=== PATIENT | male | born 1970 | race Caucasian/White ===

== ENCOUNTER 2017-10-05 07:17 | Inpatient (IN) ==
[2017-10-05] MEDS ORDERED: SODIUM CHLORIDE 0.9% 1,000 ML IV STA (08:02)
[2017-10-05] MEDS ORDERED: MORPHINE 4 MG/1 ML VIAL IV STA (08:02)
[2017-10-05] MEDS ORDERED: ONDANSETRON 4 MG/2 ML VIAL IV STA (08:02)
[2017-10-05 08:35] LABS: Basophils # 0.2 10*3/uL (0.0-0.2); Basophils % 1.4 % (0.0-0.8); Eosinophils # 0.3 10*3/uL (0.0-0.87); Hemoglobin 17.6 GM/DL (14.0-18.0); Immature Granulocytes % 0.6 %; Immature Granulocytes Absolute 0.08 #; Lymphocytes # 3.5 10*3/uL (1.4-4.0); Lymphocytes % 24.9 % (21.2-54.2); Mean Corpuscular HGB Conc 27.4 GM/DL (32-36); Mean Corpuscular Hemoglobin 17 PG (27-34); Mean Corpuscular Volume 61.1 FL (87-102); Monocytes # 1.7 10*3/uL (0.11-0.8); Monocytes % 12.3 % (1.7-12.7); NRBC # 0.21 10*3/uL; Neutrophils # 8.2 10*3/uL (1.4-7.4); Neutrophils % 58.8 % (38.7-73.9); Platelet Count 365 T/CUMM (130-400); Red Blood Count > 8.60 MC/CUMM (3.8-5.5); White Blood Count 13.9 T/CUMM (4-12)
[2017-10-05 09:07] LABS: Alanine Aminotransferase 26 U/L (16-61); Albumin 3.5 G/DL (3.4-5.0); Alkaline Phosphatase 114 U/L (45-117); Aspartate Amino Transferase 27 U/L (0-37); Blood Urea Nitrogen 16 MG/DL (7-18); Calcium 9.7 MG/DL (8.5-10.1); Glucose 91 MG/DL (74-106); Potassium 3.7 MMOL/L (3.5-5.1); Sodium 136 MMOL/L (136-145); Total Protein 9.3 G/DL (6.4-8.3)
[2017-10-05 09:09] LABS: Lactic Acid 2.1 MMOL/L (0.4-2.0)
[2017-10-05 09:28] LABS: Hematocrit 64.2 VOL% (42.0-52.0)
[2017-10-05 09:40] LABS: Hypochromasia 1+
[2017-10-05 09:41] LABS: Anisocytosis 1+
[2017-10-05 09:42] LABS: Macrocytosis 1+; Platelet Estimate Normal
[2017-10-05] MEDS ORDERED: SODIUM CHLORIDE 0.45% 1,000 ML IV ONE (09:59)
[2017-10-05] MEDS ORDERED: HYDROmorphone 2 MG/1 ML VIAL IV STA (10:22)
[2017-10-05] MEDS ORDERED: HYDROmorphone 2 MG/1 ML VIAL ONE (10:23)
[2017-10-05 11:04] LABS: Apearance,Urine CLEAR (Clear); Bilirubin,Urine Negative (Negative); Blood, Urine Negative (Negative); Glucose,Urine (UA) Negative (Negative); Ketones,Urine Negative (Negative); Mucus,Urine Few /LPF (Occasional); Nitrite,Urine Negative (Negative); Protein,Urine Negative; RBC,Urine 4 /HPF (0-4); Sperm,Urine Few /HPF (Negative); Squamous Epithelial Cell,Urine Occasional /HPF (0-10); Urine Color Amber (Yellow); WBC,Urine 1 /HPF (0-6)
[2017-10-05] MEDS ORDERED: ACETAMINOPHEN 325 MG TABLET PO PRN (12:16)
[2017-10-05] MEDS ORDERED: MORPHINE 4 MG/1 ML VIAL IV PRN (13:45)
[2017-10-05] MEDS: SODIUM CHLORIDE 0.9% 1,000 ML IV SCH (14:01)
[2017-10-05] MEDS: MORPHINE 4 MG/1 ML VIAL IV PRN ×3 (16:46→21:56)
[2017-10-05 17:48] LABS: INR 1.3; PT Patient Result 13.2 SECS
[2017-10-05] MEDS: methylPREDNISolone SOD SUC 40 MG/1 ML VIAL IV SCH (17:58)
[2017-10-05 18:01] LABS: Basophils # 0.2 10*3/uL (0.0-0.2); Basophils % 1.1 % (0.0-0.8); Eosinophils # 0.4 10*3/uL (0.0-0.87); Eosinophils % 2.6 % (0.00-10.9); Hematocrit 58.6 VOL% (42.0-52.0); Immature Granulocytes % 0.7 %; Lymphocytes # 3.5 10*3/uL (1.4-4.0); Lymphocytes % 24.3 % (21.2-54.2); Mean Corpuscular HGB Conc 27.5 GM/DL (32-36); Mean Corpuscular Hemoglobin 17 PG (27-34); Mean Corpuscular Volume 61.3 FL (87-102); Monocytes # 1.6 10*3/uL (0.11-0.8); Monocytes % 10.8 % (1.7-12.7); NRBC # 0.18 10*3/uL; Neutrophils # 8.8 10*3/uL (1.4-7.4); Neutrophils % 60.5 % (38.7-73.9); Platelet Count 328 T/CUMM (130-400); Red Blood Count > 8.60 MC/CUMM (3.8-5.5); Red Cell Distribution Width 28.4 % (9.3-17.3); White Blood Count 14.5 T/CUMM (4-12)
[2017-10-05 18:03] LABS: Hemoglobin 16.1 GM/DL (14.0-18.0)
[2017-10-05 18:13] LABS: Band Neutrophils 1 % (0-10); Eosinophils 2 % (0-10); Lymphocytes 17 % (20-55); Macrocytosis 2+; Nucleated Red Blood Cells 2 (0-5); Platelet Estimate Normal; Total Cells Counted 100
[2017-10-05 18:14] LABS: Polychromasia Few
[2017-10-05 18:15] LABS: Segmented Neutrophils 72 % (50-85)
[2017-10-05 18:58] LABS: HIV Antigen/Antibody Result Nonreactive (Nonreactive)
[2017-10-05 18:59] LABS: Hepatitis B Core IgM Quant < 0.05 Index; Hepatitis B Core IgM Result Negative (Negative); Hepatitis B Surface Ag Quant 0.23 Index; Hepatitis B Surface Ag Result Negative (Negative); Hepatitis C Virus Ab Quant > 11.00 Index; Hepatitis C Virus Ab Result Positive (Negative)
[2017-10-05] MEDS: ONDANSETRON 4 MG/2 ML VIAL IV PRN (19:46)
[2017-10-06] MEDS: MORPHINE 4 MG/1 ML VIAL IV PRN ×4 (01:15→09:02)
[2017-10-06] MEDS: SODIUM CHLORIDE 0.9% 1,000 ML IV SCH ×2 (02:00→16:20)
[2017-10-06] MEDS: ONDANSETRON 4 MG/2 ML VIAL IV PRN (04:13)
[2017-10-06] MEDS: methylPREDNISolone SOD SUC 40 MG/1 ML VIAL IV SCH ×2 (05:15→17:28)
[2017-10-06 05:34] LABS: Basophils # 0.1 10*3/uL (0.0-0.2); Basophils % 0.5 % (0.0-0.8); Hematocrit 59.3 VOL% (42.0-52.0); Hemoglobin 16.3 GM/DL (14.0-18.0); Immature Granulocytes % 0.7 %; Immature Granulocytes Absolute 0.08 #; Lymphocytes # 1.8 10*3/uL (1.4-4.0); Lymphocytes % 16.1 % (21.2-54.2); Mean Corpuscular HGB Conc 27.5 GM/DL (32-36); Mean Corpuscular Hemoglobin 17 PG (27-34); Mean Corpuscular Volume 60.8 FL (87-102); Monocytes % 8.9 % (1.7-12.7); NRBC # 0.15 10*3/uL; Neutrophils # 8.3 10*3/uL (1.4-7.4); Neutrophils % 73.8 % (38.7-73.9); Platelet Count 353 T/CUMM (130-400); Red Cell Distribution Width 28.3 % (9.3-17.3); White Blood Count 11.2 T/CUMM (4-12)
[2017-10-06 05:40] LABS: Albumin 3.1 G/DL (3.4-5.0); Bilirubin,Direct 0.34 MG/DL (0.0-0.20); Bilirubin,Indirect 1.3 MG/DL (0.0-1.0); Bilirubin,Total 1.6 MG/DL (0.2-1.0); Calcium 9.3 MG/DL (8.5-10.1); Potassium 3.8 MMOL/L (3.5-5.1); Total Protein 8.5 G/DL (6.4-8.3)
[2017-10-06 06:12] LABS: Red Blood Count 9.28 MC/CUMM (3.8-5.5)
[2017-10-06 06:31] LABS: Band Neutrophils 3 % (0-10); Lymphocytes 17 % (20-55); Nucleated Red Blood Cells 2 (0-5); Segmented Neutrophils 75 % (50-85); Total Cells Counted 100
[2017-10-06 06:35] LABS: Anisocytosis 1+; Hypochromasia 1+; Macrocytosis 1+; Platelet Estimate Adequate; Target Cells Few
[2017-10-06] MEDS: PANTOPRAZOLE 40 MG TABLET PO SCH (09:04)
[2017-10-06] MEDS ORDERED: KETOROLAC 30 MG/1 ML VIAL IV ONE (09:18)
[2017-10-06] MEDS ORDERED: NALOXONE 0.4 MG/ML VIAL IV PRN (09:20)
[2017-10-06] MEDS: HYOSCYAMINE 0.125 MG TABLET PO SCH ×3 (10:46→21:34)
[2017-10-06] MEDS: HYDROmorphone PCA 30 MG/30 ML SYRINGE IV SCH (11:35)
[2017-10-06] MEDS: KETOROLAC 15 MG/1 ML VIAL IV SCH ×2 (15:07→21:34)
[2017-10-06] MEDS: HYDROXYUREA 500 MG CAPSULE PO SCH ×2 (17:26→21:34)
[2017-10-07] MEDS: KETOROLAC 15 MG/1 ML VIAL IV SCH ×4 (04:04→20:41)
[2017-10-07] MEDS: HYOSCYAMINE 0.125 MG TABLET PO SCH ×4 (04:05→20:41)
[2017-10-07] MEDS: SODIUM CHLORIDE 0.9% 1,000 ML IV SCH ×2 (04:09→20:41)
[2017-10-07] MEDS: methylPREDNISolone SOD SUC 40 MG/1 ML VIAL IV SCH ×2 (05:16→16:33)
[2017-10-07 05:59] LABS: Basophils % 0.2 % (0.0-0.8); Hematocrit 51.1 VOL% (42.0-52.0); Hemoglobin 14.1 GM/DL (14.0-18.0); Immature Granulocytes % 0.9 %; Immature Granulocytes Absolute 0.13 #; Lymphocytes # 2.3 10*3/uL (1.4-4.0); Lymphocytes % 15.6 % (21.2-54.2); Mean Corpuscular HGB Conc 27.6 GM/DL (32-36); Mean Corpuscular Hemoglobin 17 PG (27-34); Mean Corpuscular Volume 60.5 FL (87-102); Monocytes # 1.2 10*3/uL (0.11-0.8); Monocytes % 7.9 % (1.7-12.7); NRBC # 0.16 10*3/uL; Neutrophils # 11.1 10*3/uL (1.4-7.4); Neutrophils % 75.4 % (38.7-73.9); Platelet Count 389 T/CUMM (130-400); Red Blood Count 8.45 MC/CUMM (3.8-5.5); Red Cell Distribution Width 27.4 % (9.3-17.3); White Blood Count 14.7 T/CUMM (4-12)
[2017-10-07 06:31] LABS: Albumin 2.7 G/DL (3.4-5.0); Bilirubin,Total 1.5 MG/DL (0.2-1.0); Calcium 8.8 MG/DL (8.5-10.1); Potassium 3.9 MMOL/L (3.5-5.1); Total Protein 7.3 G/DL (6.4-8.3)
[2017-10-07 06:37] LABS: Lymphocytes 13 % (20-55); Nucleated Red Blood Cells 1 (0-5); Platelet Estimate Normal; Segmented Neutrophils 83 % (50-85); Total Cells Counted 100
[2017-10-07 06:49] LABS: Bilirubin,Direct 0.27 MG/DL (0.0-0.20); Bilirubin,Indirect 1.1 MG/DL (0.0-1.0); Bilirubin,Total 1.4 MG/DL (0.2-1.0); Calcium 8.8 MG/DL (8.5-10.1); Osmolality,Calculated 275.8 MOS/KG (273-304); Total Protein 7.1 G/DL (6.4-8.3)
[2017-10-07] MEDS: PANTOPRAZOLE 40 MG TABLET PO SCH (09:58)
[2017-10-07] MEDS: HYDROXYUREA 500 MG CAPSULE PO SCH ×2 (09:58→20:41)
[2017-10-08] MEDS: HYDROmorphone PCA 30 MG/30 ML SYRINGE IV SCH ×2 (04:17→09:36)
[2017-10-08] MEDS: KETOROLAC 15 MG/1 ML VIAL IV SCH ×4 (04:18→20:54)
[2017-10-08] MEDS: HYOSCYAMINE 0.125 MG TABLET PO SCH ×4 (04:18→20:53)
[2017-10-08] MEDS: methylPREDNISolone SOD SUC 40 MG/1 ML VIAL IV SCH ×2 (06:10→17:38)
[2017-10-08] MEDS: SODIUM CHLORIDE 0.9% 1,000 ML IV SCH ×3 (06:10→20:55)
[2017-10-08 06:25] LABS: Basophils % 0.2 % (0.0-0.8); Eosinophils % 0.1 % (0.00-10.9); Hematocrit 51.6 VOL% (42.0-52.0); Hemoglobin 13.9 GM/DL (14.0-18.0); Immature Granulocytes % 0.8 %; Immature Granulocytes Absolute 0.15 #; Lymphocytes # 3.3 10*3/uL (1.4-4.0); Lymphocytes % 17.7 % (21.2-54.2); Mean Corpuscular HGB Conc 26.9 GM/DL (32-36); Mean Corpuscular Hemoglobin 17 PG (27-34); Mean Corpuscular Volume 61.5 FL (87-102); Monocytes # 1.4 10*3/uL (0.11-0.8); Monocytes % 7.7 % (1.7-12.7); NRBC # 0.17 10*3/uL; Neutrophils # 13.7 10*3/uL (1.4-7.4); Neutrophils % 73.5 % (38.7-73.9); Platelet Count 404 T/CUMM (130-400); Red Blood Count 8.39 MC/CUMM (3.8-5.5); Red Cell Distribution Width 27.2 % (9.3-17.3); White Blood Count 18.6 T/CUMM (4-12)
[2017-10-08 06:32] LABS: Albumin 2.9 G/DL (3.4-5.0); Bilirubin,Direct 0.3 MG/DL (0.0-0.20); Bilirubin,Indirect 0.7 MG/DL (0.0-1.0); Calcium 8.9 MG/DL (8.5-10.1); Osmolality,Calculated 273.8 MOS/KG (273-304); Potassium 3.9 MMOL/L (3.5-5.1); Total Protein 7.5 G/DL (6.4-8.3)
[2017-10-08 06:48] LABS: Band Neutrophils 1 % (0-10); Giant Platelets Few; Hypochromasia 1+; Lymphocytes 20 % (20-55); Macrocytosis Slight; Nucleated Red Blood Cells 1 (0-5); Platelet Estimate Adequate; Segmented Neutrophils 72 % (50-85); Total Cells Counted 100
[2017-10-08] MEDS: PANTOPRAZOLE 40 MG TABLET PO SCH (09:29)
[2017-10-08] MEDS: HYDROXYUREA 500 MG CAPSULE PO SCH ×2 (09:29→20:53)
[2017-10-09] MEDS: HYOSCYAMINE 0.125 MG TABLET PO SCH ×4 (03:07→21:45)
[2017-10-09] MEDS: KETOROLAC 15 MG/1 ML VIAL IV SCH (03:08)
[2017-10-09] MEDS: methylPREDNISolone SOD SUC 40 MG/1 ML VIAL IV SCH ×2 (04:35→18:43)
[2017-10-09 05:19] LABS: Basophils % 0.2 % (0.0-0.8); Hematocrit 49.1 VOL% (42.0-52.0); Hemoglobin 13.5 GM/DL (14.0-18.0); Immature Granulocytes % 0.8 %; Immature Granulocytes Absolute 0.14 #; Lymphocytes # 2.8 10*3/uL (1.4-4.0); Lymphocytes % 16.6 % (21.2-54.2); Mean Corpuscular HGB Conc 27.5 GM/DL (32-36); Mean Corpuscular Hemoglobin 17 PG (27-34); Monocytes # 0.5 10*3/uL (0.11-0.8); Monocytes % 3.1 % (1.7-12.7); NRBC # 0.25 10*3/uL; Neutrophils # 13.5 10*3/uL (1.4-7.4); Neutrophils % 79.3 % (38.7-73.9); Platelet Count 366 T/CUMM (130-400); Red Blood Count 7.92 MC/CUMM (3.8-5.5); Red Cell Distribution Width 26.8 % (9.3-17.3)
[2017-10-09 05:41] LABS: Giant Platelets Few; Lymphocytes 10 % (20-55); Nucleated Red Blood Cells 1 (0-5); Platelet Estimate Adequate; Segmented Neutrophils 88 % (50-85); Total Cells Counted 100
[2017-10-09 05:42] LABS: Hypochromasia Slight; Macrocytosis Slight
[2017-10-09 05:43] LABS: Albumin 2.8 G/DL (3.4-5.0); Bilirubin,Total 0.9 MG/DL (0.2-1.0); Calcium 8.6 MG/DL (8.5-10.1); Osmolality,Calculated 276.7 MOS/KG (273-304); Potassium 3.9 MMOL/L (3.5-5.1)
[2017-10-09 08:12] LABS: Total Protein (Chem) 8.2 G/DL (6.4-8.3)
[2017-10-09] MEDS ORDERED: HYDROmorphone 2 MG/1 ML VIAL IV ONE (12:22)
[2017-10-09] MEDS: HYDROmorphone PCA 30 MG/30 ML SYRINGE IV SCH ×3 (14:13→14:53)
[2017-10-09] MEDS: SODIUM CHLORIDE 0.9% 1,000 ML IV SCH ×2 (14:17→23:26)
[2017-10-09] MEDS: PANTOPRAZOLE 40 MG TABLET PO SCH (14:59)
[2017-10-09] MEDS: HYDROXYUREA 500 MG CAPSULE PO SCH ×2 (14:59→21:45)
[2017-10-09] MEDS: VANCOMYCIN 50 MG/ML 60 ML/BOTTLE PO SCH ×3 (14:59→23:26)
[2017-10-10] MEDS: methylPREDNISolone SOD SUC 40 MG/1 ML VIAL IV SCH ×2 (05:19→17:32)
[2017-10-10] MEDS: VANCOMYCIN 50 MG/ML 60 ML/BOTTLE PO SCH ×4 (05:19→23:54)
[2017-10-10] MEDS: HYOSCYAMINE 0.125 MG TABLET PO SCH ×4 (05:19→21:00)
[2017-10-10 07:57] LABS: Basophils % 0.1 % (0.0-0.8); Eosinophils % 0.1 % (0.00-10.9); Hematocrit 54.5 VOL% (42.0-52.0); Immature Granulocytes % 0.7 %; Immature Granulocytes Absolute 0.11 #; Lymphocytes # 1.7 10*3/uL (1.4-4.0); Mean Corpuscular HGB Conc 27.9 GM/DL (32-36); Mean Corpuscular Hemoglobin 17 PG (27-34); Mean Corpuscular Volume 60.8 FL (87-102); Monocytes # 0.4 10*3/uL (0.11-0.8); Monocytes % 2.9 % (1.7-12.7); NRBC # 0.27 10*3/uL; Neutrophils # 12.8 10*3/uL (1.4-7.4); Neutrophils % 85.2 % (38.7-73.9); Platelet Count 372 T/CUMM (130-400); Red Blood Count > 8.60 MC/CUMM (3.8-5.5); Red Cell Distribution Width 27.9 % (9.3-17.3)
[2017-10-10 07:58] LABS: Hemoglobin 15.2 GM/DL (14.0-18.0)
[2017-10-10 08:03] LABS: Calcium 8.8 MG/DL (8.5-10.1); Osmolality,Calculated 273.8 MOS/KG (273-304); Potassium 3.8 MMOL/L (3.5-5.1)
[2017-10-10 08:20] LABS: Macrocytosis 1+
[2017-10-10 08:21] LABS: Hypochromasia 1+; Platelet Estimate Normal; Target Cells Slight
[2017-10-10 09:27] LABS: Albumin (SPE) 4.4 G/DL (3.2-5.3); Albumin (SPE) Rel % 53.3 %; Alpha 1 (SPE) 0.3 G/DL (0.1-0.4); Alpha 1 (SPE) Rel % 3.4 %; Alpha 2 (SPE) 0.7 G/DL (0.4-1.0); Alpha 2 (SPE) Rel % 8.8 %; Beta (SPE) 0.7 G/DL (0.5-1.1)
[2017-10-10 09:28] LABS: Beta (SPE) Rel % 8.4 %; Gamma (SPE) 2.1 G/DL (0.7-1.7); Gamma (SPE) Rel % 26.1 %
[2017-10-10] MEDS ORDERED: HEPARIN/NACL 0.9% 2 UNITS/ML 2,000 ML IV ONE (09:56)
[2017-10-10] MEDS ORDERED: SUGAMMADEX 200 MG/2 ML VIAL IV ONE (10:42)
[2017-10-10] MEDS ORDERED: CLOPIDOGREL 300 MG TABLET PO ONE (11:56)
[2017-10-10] MEDS ORDERED: SEVOFLURANE 1 UNIT/15 MINUTE INH ONE (12:23)
[2017-10-10] MEDS ORDERED: PROPOFOL 200 MG/20 ML VIAL IV ONE (12:23)
[2017-10-10] MEDS ORDERED: MIDAZOLAM 2 MG/2 ML VIAL ONE (12:23)
[2017-10-10] MEDS ORDERED: fentaNYL 100 MCG/2 ML VIAL ONE (12:24)
[2017-10-10] MEDS ORDERED: methylPREDNISolone SOD SUC 125 MG/2 ML VIAL ONE (12:24)
[2017-10-10] MEDS ORDERED: PHENYLEPHRINE 1 MG/10 ML SYRINGE IV ONE (12:24)
[2017-10-10] MEDS ORDERED: ONDANSETRON 4 MG/2 ML VIAL ONE (12:24)
[2017-10-10] MEDS ORDERED: ROCURONIUM 100 MG/10 ML VIAL IV ONE (12:24)
[2017-10-10] MEDS ORDERED: hydrALAZINE 20 MG/1 ML VIAL IV ONE (12:38)
[2017-10-10] MEDS ORDERED: hydrALAZINE 20 MG/1 ML VIAL ONE (12:38)
[2017-10-10] MEDS: HYDROXYUREA 500 MG CAPSULE PO SCH ×2 (13:36→21:00)
[2017-10-10] MEDS: PANTOPRAZOLE 40 MG TABLET PO SCH (13:36)
[2017-10-10] MEDS: SODIUM CHLORIDE 0.9% 1,000 ML IV SCH (13:39)
[2017-10-10] MEDS: ENOXAPARIN 60 MG/0.6 ML SYRINGE SUBCUT SCH ×2 (13:49→23:54)
[2017-10-10] MEDS: methylPREDNISolone SOD SUC 125 MG/2 ML VIAL IV SCH ×2 (18:35→23:52)
[2017-10-10 19:45] LABS: Myeloperoxidase Antibody < 0.2 U
[2017-10-10] MEDS: HYDROmorphone PCA 30 MG/30 ML SYRINGE IV SCH (21:40)
[2017-10-11] MEDS: SODIUM CHLORIDE 0.9% 1,000 ML IV SCH ×3 (02:44→16:43)
[2017-10-11 02:51] LABS: Cyclic Citrull Peptide Ab < 15.6 U
[2017-10-11] MEDS: HYOSCYAMINE 0.125 MG TABLET PO SCH ×4 (03:41→20:39)
[2017-10-11] MEDS: methylPREDNISolone SOD SUC 125 MG/2 ML VIAL IV SCH ×4 (05:21→20:17)
[2017-10-11] MEDS: VANCOMYCIN 50 MG/ML 60 ML/BOTTLE PO SCH ×4 (05:23→23:56)
[2017-10-11 09:02] LABS: Anisocytosis 2+; Spherocytes Few
[2017-10-11 09:03] LABS: Burr Cells Few; Platelet Estimate Normal; Target Cells 1+
[2017-10-11 09:05] LABS: Polychromasia Slight
[2017-10-11] MEDS: HYDROXYUREA 500 MG CAPSULE PO SCH ×2 (09:08→20:39)
[2017-10-11] MEDS: CLOPIDOGREL 75 MG TABLET PO SCH (09:08)
[2017-10-11] MEDS: PANTOPRAZOLE 40 MG TABLET PO SCH (09:08)
[2017-10-11 09:09] LABS: Basophils % 0.2 % (0.0-0.8); Hematocrit 52.3 VOL% (42.0-52.0); Hemoglobin 14.8 GM/DL (14.0-18.0); Immature Granulocytes % 0.7 %; Immature Granulocytes Absolute 0.08 #; Lymphocytes # 1.2 10*3/uL (1.4-4.0); Mean Corpuscular HGB Conc 28.3 GM/DL (32-36); Mean Corpuscular Hemoglobin 17 PG (27-34); Mean Corpuscular Volume 59.9 FL (87-102); Monocytes # 0.2 10*3/uL (0.11-0.8); Monocytes % 1.4 % (1.7-12.7); NRBC # 0.77 10*3/uL; Neutrophils # 9.4 10*3/uL (1.4-7.4); Neutrophils % 86.7 % (38.7-73.9); Platelet Count 363 T/CUMM (130-400); Red Blood Count > 8.60 MC/CUMM (3.8-5.5); Red Cell Distribution Width 27.6 % (9.3-17.3); White Blood Count 10.9 T/CUMM (4-12)
[2017-10-11] MEDS: ENOXAPARIN 60 MG/0.6 ML SYRINGE SUBCUT SCH ×2 (11:34→21:54)
[2017-10-11] MEDS: HYDROmorphone 2 MG/1 ML VIAL IV PRN ×4 (11:34→23:55)
[2017-10-12] MEDS: HYDROmorphone 2 MG/1 ML VIAL IV PRN ×6 (02:58→23:25)
[2017-10-12] MEDS: HYOSCYAMINE 0.125 MG TABLET PO SCH ×4 (02:59→20:41)
[2017-10-12] MEDS: methylPREDNISolone SOD SUC 125 MG/2 ML VIAL IV SCH ×4 (02:59→20:44)
[2017-10-12] MEDS: SODIUM CHLORIDE 0.9% 1,000 ML IV SCH ×2 (05:50→19:17)
[2017-10-12 05:52] LABS: Basophils % 0.1 % (0.0-0.8); Hematocrit 49.1 VOL% (42.0-52.0); Immature Granulocytes % 1.8 %; Immature Granulocytes Absolute 0.16 #; Lymphocytes # 0.6 10*3/uL (1.4-4.0); Lymphocytes % 6.5 % (21.2-54.2); Mean Corpuscular HGB Conc 28.5 GM/DL (32-36); Mean Corpuscular Hemoglobin 17 PG (27-34); Mean Corpuscular Volume 59.7 FL (87-102); Monocytes # 0.1 10*3/uL (0.11-0.8); Monocytes % 1.6 % (1.7-12.7); NRBC # 1.04 10*3/uL; Neutrophils # 7.9 10*3/uL (1.4-7.4); Platelet Count 370 T/CUMM (130-400); Red Blood Count 8.23 MC/CUMM (3.8-5.5); Red Cell Distribution Width 27.1 % (9.3-17.3); White Blood Count 8.7 T/CUMM (4-12)
[2017-10-12 07:18] LABS: Band Neutrophils 2 % (0-10); Hypochromasia 3+; Lymphocytes 7 % (20-55); Nucleated Red Blood Cells 27 (0-5); Segmented Neutrophils 89 % (50-85); Total Cells Counted 100
[2017-10-12] MEDS: VANCOMYCIN 50 MG/ML 60 ML/BOTTLE PO SCH ×3 (07:18→18:58)
[2017-10-12 07:19] LABS: Anisocytosis 3+; Macrocytosis 2+; Microcytosis 1+; Ovalocytes Few; Target Cells Few
[2017-10-12 07:20] LABS: Acanthocytes Few; Elliptocytes Few; Platelet Estimate Normal; Polychromasia 1+
[2017-10-12] MEDS: CLOPIDOGREL 75 MG TABLET PO SCH (09:16)
[2017-10-12] MEDS: HYDROXYUREA 500 MG CAPSULE PO SCH ×2 (09:16→20:41)
[2017-10-12] MEDS: PANTOPRAZOLE 40 MG TABLET PO SCH (09:16)
[2017-10-12 09:21] LABS: JAK2 Result see interpretation
[2017-10-12] MEDS: ENOXAPARIN 60 MG/0.6 ML SYRINGE SUBCUT SCH ×2 (09:21→20:43)
[2017-10-13] MEDS: VANCOMYCIN 50 MG/ML 60 ML/BOTTLE PO SCH ×5 (00:33→23:35)
[2017-10-13] MEDS: HYDROmorphone 2 MG/1 ML VIAL IV PRN ×6 (03:04→23:29)
[2017-10-13] MEDS: methylPREDNISolone SOD SUC 125 MG/2 ML VIAL IV SCH ×3 (03:08→15:53)
[2017-10-13] MEDS: HYOSCYAMINE 0.125 MG TABLET PO SCH ×4 (03:08→20:28)
[2017-10-13] MEDS: SODIUM CHLORIDE 0.9% 1,000 ML IV SCH ×4 (07:22→21:50)
[2017-10-13] MEDS: PANTOPRAZOLE 40 MG TABLET PO SCH (09:55)
[2017-10-13] MEDS: HYDROXYUREA 500 MG CAPSULE PO SCH ×2 (09:55→20:28)
[2017-10-13] MEDS: ENOXAPARIN 60 MG/0.6 ML SYRINGE SUBCUT SCH ×2 (09:56→20:28)
[2017-10-13] MEDS: CLOPIDOGREL 75 MG TABLET PO SCH (09:56)
[2017-10-14] MEDS: HYDROmorphone 2 MG/1 ML VIAL IV PRN ×6 (02:42→21:20)
[2017-10-14] MEDS: HYOSCYAMINE 0.125 MG TABLET PO SCH ×4 (03:09→21:15)
[2017-10-14] MEDS: VANCOMYCIN 50 MG/ML 60 ML/BOTTLE PO SCH ×3 (05:51→17:59)
[2017-10-14] MEDS: ENOXAPARIN 60 MG/0.6 ML SYRINGE SUBCUT SCH ×2 (10:32→21:16)
[2017-10-14] MEDS: PANTOPRAZOLE 40 MG TABLET PO SCH (10:32)
[2017-10-14] MEDS: CLOPIDOGREL 75 MG TABLET PO SCH (10:32)
[2017-10-14] MEDS: HYDROXYUREA 500 MG CAPSULE PO SCH ×2 (10:32→21:15)
[2017-10-14] MEDS: SODIUM CHLORIDE 0.9% 1,000 ML IV SCH ×2 (10:35→21:20)
[2017-10-15] MEDS: HYDROmorphone 2 MG/1 ML VIAL IV PRN ×3 (01:06→08:33)
[2017-10-15] MEDS: VANCOMYCIN 50 MG/ML 60 ML/BOTTLE PO SCH ×3 (01:07→13:41)
[2017-10-15] MEDS: HYOSCYAMINE 0.125 MG TABLET PO SCH ×2 (04:43→08:33)
[2017-10-15] MEDS: PANTOPRAZOLE 40 MG TABLET PO SCH (08:32)
[2017-10-15] MEDS: HYDROXYUREA 500 MG CAPSULE PO SCH (08:32)
[2017-10-15] MEDS: ENOXAPARIN 60 MG/0.6 ML SYRINGE SUBCUT SCH (08:32)
[2017-10-15] MEDS: CLOPIDOGREL 75 MG TABLET PO SCH (08:33)
[2017-10-15 12:16] VITALS: BP 150/86
== END 2017-10-15 14:55 | disposition home or self-care (01) | DRG 357 ==
LOC: N.EDINP 07:17 → N.ED 07:17 → SUATTDRO 11:01 → N.EDINP 12:28 → N.5E 12:49 → UNDODISOB 13:09 → SUATTDRO 10-06 10:52 → N.CC 10-10 20:03 → N.2E 10-11 15:01
PROVIDERS: ADMIT Internal Medicine; ATTEND Internal Medicine
PROC: IRAGMES (2017-10-10 10:10)

== ENCOUNTER 2018-03-08 11:16 | Inpatient (IN) ==
[2018-03-08] MEDS ORDERED: MORPHINE 4 MG/1 ML VIAL IV STA ×3 (11:32→17:25)
[2018-03-08] MEDS ORDERED: ONDANSETRON 4 MG/2 ML VIAL IV STA (11:32)
[2018-03-08] MEDS ORDERED: SODIUM CHLORIDE 0.9% 1,000 ML IV STA ×3 (11:32→16:15)
[2018-03-08 12:28] LABS: Basophils # 0.1 10*3/uL (0.0-0.2); Eosinophils # 0.3 10*3/uL (0.0-0.87); Eosinophils % 2.2 % (0.00-10.9); Hematocrit 53.4 VOL% (42.0-52.0); Immature Granulocytes % 0.5 %; Immature Granulocytes Absolute 0.06 #; Lymphocytes # 2.1 10*3/uL (1.4-4.0); Lymphocytes % 18.8 % (21.2-54.2); Mean Corpuscular HGB Conc 27.7 GM/DL (32-36); Mean Corpuscular Hemoglobin 18 PG (27-34); Monocytes # 1.5 10*3/uL (0.11-0.8); Monocytes % 13.7 % (1.7-12.7); NRBC # 0.03 10*3/uL; Neutrophils # 7.1 10*3/uL (1.4-7.4); Neutrophils % 63.8 % (38.7-73.9); Platelet Count 368 T/CUMM (130-400); Red Blood Count 8.21 MC/CUMM (3.8-5.5); Red Cell Distribution Width 27.9 % (9.3-17.3); White Blood Count 11.1 T/CUMM (4-12)
[2018-03-08 12:30] LABS: Albumin 2.9 G/DL (3.4-5.0); Bilirubin,Total 1.3 MG/DL (0.2-1.0); Calcium 9.1 MG/DL (8.5-10.1); Osmolality,Calculated 267.2 MOS/KG (273-304); Potassium 3.9 MMOL/L (3.5-5.1); Total Protein 8.1 G/DL (6.4-8.3)
[2018-03-08 12:33] LABS: Hemoglobin 14.8 GM/DL (14.0-18.0); Platelet Estimate Normal
[2018-03-08 12:34] LABS: Anisocytosis 1+; Polychromasia Slight; Target Cells Few
[2018-03-08 13:34] LABS: Barbiturates Screen,Urine Negative (Negative); Benzodiazepines Screen,Urine Positive (Negative); Cannabinoid Screen,Urine Negative (Negative); Opiate Screen,Urine Positive (Negative); Phencyclidine Screen,Urine Negative (Negative)
[2018-03-08 14:05] LABS: Apearance,Urine CLEAR (Clear); Bilirubin,Urine Negative (Negative); Blood, Urine Negative (Negative); Glucose,Urine (UA) Negative (Negative); Ketones,Urine Negative (Negative); Mucus,Urine Occasional /LPF (Occasional); Nitrite,Urine Negative (Negative); Protein,Urine Negative; RBC,Urine 1 /HPF (0-4); Urine Specific Gravity 1.057 (1.001-1.035); WBC,Urine 1 /HPF (0-6)
[2018-03-08] MEDS ORDERED: ONDANSETRON 4 MG/2 ML VIAL IV PRN (16:51)
[2018-03-08] MEDS ORDERED: NICOTINE 21 MG/24 HR PATCH TRANSDERM PRN (16:51)
[2018-03-08] MEDS ORDERED: INFLUENZA VIRUS VACCINE 0.5 ML SYRINGE IM ONE (18:24)
[2018-03-08] MEDS: ENOXAPARIN 40 MG/0.4 ML SYRINGE SUBCUT SCH (21:09)
[2018-03-08] MEDS: MORPHINE 4 MG/1 ML VIAL IV PRN (22:07)
[2018-03-08] MEDS: SODIUM CHLORIDE 0.9% 1,000 ML IV SCH (22:09)
[2018-03-08] MEDS: PIPERACILLIN/TAZOBACTAM 3,375 MG in SODIUM CHLORIDE 0.9% 100 ML IV SCH (22:09)
[2018-03-09] MEDS: MORPHINE 4 MG/1 ML VIAL IV PRN ×2 (02:02→06:13)
[2018-03-09 05:28] LABS: Albumin 2.5 G/DL (3.4-5.0); Bilirubin,Total 1.2 MG/DL (0.2-1.0); Calcium 8.3 MG/DL (8.5-10.1); Osmolality,Calculated 274.5 MOS/KG (273-304); Potassium 3.6 MMOL/L (3.5-5.1); Thyroid Stimulating Hormone 2.53 uIU/ml (0.358-3.74); Total Protein 6.9 G/DL (6.4-8.3)
[2018-03-09 05:32] LABS: Basophils # 0.1 10*3/uL (0.0-0.2); Eosinophils # 0.4 10*3/uL (0.0-0.87); Eosinophils % 3.7 % (0.00-10.9); Hematocrit 47.7 VOL% (42.0-52.0); Immature Granulocytes % 0.5 %; Immature Granulocytes Absolute 0.06 #; Lymphocytes # 4.2 10*3/uL (1.4-4.0); Lymphocytes % 36.8 % (21.2-54.2); Mean Corpuscular HGB Conc 27.5 GM/DL (32-36); Mean Corpuscular Hemoglobin 18 PG (27-34); Monocytes # 1.3 10*3/uL (0.11-0.8); Monocytes % 11.5 % (1.7-12.7); NRBC # 0.02 10*3/uL; Neutrophils # 5.3 10*3/uL (1.4-7.4); Neutrophils % 46.5 % (38.7-73.9); Platelet Count 358 T/CUMM (130-400); Red Blood Count 7.34 MC/CUMM (3.8-5.5); Red Cell Distribution Width 27.1 % (9.3-17.3); White Blood Count 11.4 T/CUMM (4-12)
[2018-03-09 05:57] LABS: Hemoglobin 13.1 GM/DL (14.0-18.0)
[2018-03-09] MEDS: PIPERACILLIN/TAZOBACTAM 3,375 MG in SODIUM CHLORIDE 0.9% 100 ML IV SCH ×3 (06:15→21:42)
[2018-03-09] MEDS: SODIUM CHLORIDE 0.9% 1,000 ML IV SCH ×2 (06:40→11:24)
[2018-03-09] MEDS: PANTOPRAZOLE 40 MG TABLET PO SCH (09:47)
[2018-03-09] MEDS: HYDROmorphone 2 MG/1 ML VIAL IV PRN ×4 (10:11→21:42)
[2018-03-09] MEDS: ENOXAPARIN 40 MG/0.4 ML SYRINGE SUBCUT SCH (21:43)
[2018-03-10] MEDS: SODIUM CHLORIDE 0.9% 1,000 ML IV SCH ×3 (00:27→09:53)
[2018-03-10] MEDS: HYDROmorphone 2 MG/1 ML VIAL IV PRN ×6 (02:39→22:58)
[2018-03-10] MEDS: PIPERACILLIN/TAZOBACTAM 3,375 MG in SODIUM CHLORIDE 0.9% 100 ML IV SCH ×3 (05:17→21:48)
[2018-03-10 06:07] LABS: Albumin 2.4 G/DL (3.4-5.0); Bilirubin,Total 0.9 MG/DL (0.2-1.0); Calcium 7.8 MG/DL (8.5-10.1); Osmolality,Calculated 274.7 MOS/KG (273-304); Potassium 3.2 MMOL/L (3.5-5.1); Total Protein 6.3 G/DL (6.4-8.3)
[2018-03-10 06:10] LABS: Basophils # 0.1 10*3/uL (0.0-0.2); Basophils % 1.2 % (0.0-0.8); Eosinophils # 0.5 10*3/uL (0.0-0.87); Eosinophils % 4.5 % (0.00-10.9); Hematocrit 44.9 VOL% (42.0-52.0); Hemoglobin 12.4 GM/DL (14.0-18.0); Immature Granulocytes % 0.5 %; Immature Granulocytes Absolute 0.05 #; Lymphocytes # 3.8 10*3/uL (1.4-4.0); Lymphocytes % 38.4 % (21.2-54.2); Mean Corpuscular HGB Conc 27.6 GM/DL (32-36); Mean Corpuscular Hemoglobin 18 PG (27-34); Mean Corpuscular Volume 65.3 FL (87-102); Monocytes # 1.2 10*3/uL (0.11-0.8); Monocytes % 11.6 % (1.7-12.7); NRBC # 0.02 10*3/uL; Neutrophils # 4.3 10*3/uL (1.4-7.4); Neutrophils % 43.8 % (38.7-73.9); Platelet Count 340 T/CUMM (130-400); Red Blood Count 6.88 MC/CUMM (3.8-5.5); Red Cell Distribution Width 26.7 % (9.3-17.3); White Blood Count 9.9 T/CUMM (4-12)
[2018-03-10 07:09] LABS: Hypochromasia 3+; Ovalocytes Few
[2018-03-10 07:10] LABS: Elliptocytes Few; Platelet Estimate Normal; Polychromasia Few; Schistocytes Slight; Target Cells Few
[2018-03-10] MEDS ORDERED: POTASSIUM CHLORIDE 20 MEQ TABLET PO PRN (09:07)
[2018-03-10] MEDS: PANTOPRAZOLE 40 MG TABLET PO SCH (09:52)
[2018-03-10] MEDS: ENOXAPARIN 40 MG/0.4 ML SYRINGE SUBCUT SCH (21:47)
[2018-03-11] MEDS: HYDROmorphone 2 MG/1 ML VIAL IV PRN ×6 (03:26→23:54)
[2018-03-11] MEDS: SODIUM CHLORIDE 0.9% 1,000 ML IV SCH ×6 (03:29→19:57)
[2018-03-11 06:19] LABS: Albumin 2.4 G/DL (3.4-5.0); Bilirubin,Total 0.7 MG/DL (0.2-1.0); Calcium 8.2 MG/DL (8.5-10.1); Osmolality,Calculated 273.5 MOS/KG (273-304); Potassium 3.7 MMOL/L (3.5-5.1); Total Protein 6.5 G/DL (6.4-8.3)
[2018-03-11 06:26] LABS: Basophils # 0.1 10*3/uL (0.0-0.2); Basophils % 0.9 % (0.0-0.8); Eosinophils # 0.6 10*3/uL (0.0-0.87); Eosinophils % 5.9 % (0.00-10.9); Hematocrit 47.1 VOL% (42.0-52.0); Immature Granulocytes % 0.5 %; Immature Granulocytes Absolute 0.05 #; Lymphocytes # 4.2 10*3/uL (1.4-4.0); Lymphocytes % 43.3 % (21.2-54.2); Mean Corpuscular HGB Conc 27.4 GM/DL (32-36); Mean Corpuscular Hemoglobin 18 PG (27-34); Mean Corpuscular Volume 65.4 FL (87-102); NRBC # 0.02 10*3/uL; Neutrophils # 3.8 10*3/uL (1.4-7.4); Neutrophils % 39.4 % (38.7-73.9); Platelet Count 387 T/CUMM (130-400); Red Cell Distribution Width 26.8 % (9.3-17.3); White Blood Count 9.7 T/CUMM (4-12)
[2018-03-11 06:33] LABS: Hemoglobin 12.9 GM/DL (14.0-18.0)
[2018-03-11] MEDS: PIPERACILLIN/TAZOBACTAM 3,375 MG in SODIUM CHLORIDE 0.9% 100 ML IV SCH ×3 (06:37→22:01)
[2018-03-11 06:38] LABS: Hypochromasia Slight; Ovalocytes Slight; Platelet Estimate Adequate; Target Cells Few
[2018-03-11] MEDS: PANTOPRAZOLE 40 MG TABLET PO SCH (08:16)
[2018-03-11] MEDS: ENOXAPARIN 40 MG/0.4 ML SYRINGE SUBCUT SCH (22:01)
[2018-03-12] MEDS: SODIUM CHLORIDE 0.9% 1,000 ML IV SCH ×4 (02:56→20:13)
[2018-03-12] MEDS: HYDROmorphone 2 MG/1 ML VIAL IV PRN ×2 (03:56→08:50)
[2018-03-12] MEDS: PIPERACILLIN/TAZOBACTAM 3,375 MG in SODIUM CHLORIDE 0.9% 100 ML IV SCH ×3 (05:18→22:37)
[2018-03-12 05:31] LABS: Calcium 8.4 MG/DL (8.5-10.1); Osmolality,Calculated 266.1 MOS/KG (273-304); Potassium 3.7 MMOL/L (3.5-5.1)
[2018-03-12 06:16] LABS: Basophils # 0.1 10*3/uL (0.0-0.2); Basophils % 1.3 % (0.0-0.8); Eosinophils # 0.5 10*3/uL (0.0-0.87); Eosinophils % 4.7 % (0.00-10.9); Hematocrit 48.7 VOL% (42.0-52.0); Immature Granulocytes % 0.6 %; Immature Granulocytes Absolute 0.06 #; Lymphocytes # 4.2 10*3/uL (1.4-4.0); Lymphocytes % 42.4 % (21.2-54.2); Mean Corpuscular HGB Conc 27.7 GM/DL (32-36); Mean Corpuscular Hemoglobin 18 PG (27-34); Mean Corpuscular Volume 64.8 FL (87-102); Monocytes # 1.1 10*3/uL (0.11-0.8); Monocytes % 10.6 % (1.7-12.7); NRBC # 0.04 10*3/uL; Neutrophils % 40.4 % (38.7-73.9); Platelet Count 329 T/CUMM (130-400); Red Blood Count 7.51 MC/CUMM (3.8-5.5); Red Cell Distribution Width 26.9 % (9.3-17.3); White Blood Count 9.9 T/CUMM (4-12)
[2018-03-12 06:21] LABS: Hemoglobin 13.5 GM/DL (14.0-18.0)
[2018-03-12 06:23] LABS: Hypochromasia 1+; Platelet Estimate Adequate
[2018-03-12] MEDS: PANTOPRAZOLE 40 MG TABLET PO SCH (08:50)
[2018-03-12] MEDS: ENOXAPARIN 40 MG/0.4 ML SYRINGE SUBCUT SCH (20:41)
[2018-03-13] MEDS: SODIUM CHLORIDE 0.9% 1,000 ML IV SCH ×2 (04:42→13:03)
[2018-03-13] MEDS: PIPERACILLIN/TAZOBACTAM 3,375 MG in SODIUM CHLORIDE 0.9% 100 ML IV SCH (06:03)
[2018-03-13] MEDS: PANTOPRAZOLE 40 MG TABLET PO SCH (08:47)
[2018-03-13 12:06] VITALS: BP 127/76
== END 2018-03-13 13:10 | disposition home or self-care (01) | DRG 392 ==
LOC: N.EDINP 11:16 → N.ED 11:16 → N.3E 17:00 → SUATTDRO 03-10 09:43
PROVIDERS: ADMIT Hospitalist; ATTEND Internal Medicine